=== PATIENT | male | born 1980 | race Caucasian/White ===

== ENCOUNTER 2018-08-13 09:24 | Emergency (ER) | payer SELFPAY ==
[2018-08-13 09:40] VITALS: BP 127/76
--- NOTE | 2018-08-13 10:20 | UC ---
Hip/Pelvis Pain - HPI Summary HPI Summary: Pt with recurrent, intermittent pain left lateral hip and buttock Pt states pain radiate down lateral aspect leg to knee. worse with walking. No leg weakness. no bowel/bladder changes. Tool NSAID with mild improvement. Pain has been 2 days- usually improves in 24 hours. no trauma. Works as [employer] No pcp pt's medications reviewed this visit - History Of Current Complaint Chief Complaint: UCGeneralIllness Stated Complaint: LEFT SIDED HIP PAIN Time Seen by Provider: 08/13/18 10:16 Hx Obtained From: Patient Onset/Duration: Gradual Onset, Lasting Days Pain Intensity: 8 - Allergies/Home Medications Allergies/Adverse Reactions: Allergies Allergy/AdvReac Type Severity Reaction Status Date / Time No Known Allergies Allergy Verified 08/13/18 09:39 Home Medications: Home Medications Ibuprofen TAB* [Motrin TAB* 800 MG] 800 mg PO Q6H 08/13/18 [History Confirmed ] PMH/Surg Hx/FS Hx/Imm Hx Previously Healthy: Yes - Surgical History Surgical History: None - Family History Known Family History: Positive: Non-Contributory - Social History Occupation: Employed Full-time Lives: With Family Alcohol Use: Occasionally Substance Use Type: None Smoking Status (MU): Heavy Every Day Tobacco Smoker Type: Cigarettes Review of Systems All Other Systems Reviewed And Are Negative: Yes Constitutional: Positive: Negative Skin: Positive: Negative Musculoskeletal: Positive: Other: - left hip/buttock Neurological: Positive: Paresthesia Psychological: Positive: Negative Physical Exam - Summary Physical Exam Summary: Vital Signs Reviewed: Yes A+Ox3, discomfort with ambulation Eyes: Conjunctiva Clear, SALVATORE. EOM intact and full ENT: Hearing grossly normal TM x 2 clear, mmoist, uvula midline, no exudate, no erythema Neck: Positive: Supple Respiratory: Positive: No respiratory distress, No accessory muscle use + CTA throughout no w/r Cardiovascular: RRR nl s1, s2 no m/r CBT <2 sec abd soft + BS nt/nd no guarding, no distension Musculoskeletal Exam: No pain c/t/l/s + TTP left latearl hip and left buttock palp of gluteus causes pain radiation to left buttock, lateral hip. + SLE + fle/ ext knee, ankle Neurological: Positive: Alert, + sensation throughout 2+ paterllar without clonus Psychological: Positive: Normal Response To Family Skin: Positive: no rash, no ecchymosis Vital Signs: Initial Vital Signs Temp 98.1 F 08/13/18 09:35 Pulse 70 08/13/18 09:35 Resp 16 08/13/18 09:35 BP 127/76 08/13/18 09:35 Pulse Ox 99 08/13/18 09:35 Diagnostics - Radiology No standard instances Radiology Interpretation Completed By: Radiologist - NAD Hip Injury Course/Dx - Course Course Of Treatment: Pt with pain left buttck, hip, radiates to left knee. no trauma. VSS. CSM intact. imaging unremarkable suspect related to sciatica. recommend stretch. heat. pred. motrin/apap. sports med f/u. PCP referral. declined crutches. work note - Differential Dx/Diagnosis Provider Diagnosis: Left sided sciatica Discharge - Sign-Out/Discharge Documenting (check all that apply): Patient Departure All imaging exams completed and their final reports reviewed: Yes - Discharge Plan Condition: Stable Disposition: HOME Prescriptions: predniSONE TAB* [Deltasone 20 MG TAB*] 20 mg PO DAILY #13 tab Patient Education Materials: Sciatica (ED) Forms: *Work Release Referrals: [facility] [Outside] No Primary Care Phys,NOPCP [Primary Care Provider] - Additional Instructions: - Okay to alternate ibuprofen (Advil, Motrin) 600mg and [id number] every 3 hours as needed for pain. Take with food. Do NOT take for more than 4-5 days. - Apply moist heat to your back for 20 minutes at a time, 4-5 times a day. Once your muscles are warm, slow gentle stretching exercises are important - Take prednisone as prescribed until gone - If you are sleeping on your back, place a pillow under your knees. If you are on your side, place a pillow between your knees - Contact the sports medicine group to schedule a follow-up appointment this week - request the [place] office. -If you pain is uncontrolled, you develop weakness of your legs or any other concerns - - go to an emergency department for further evaluation and treatment - Billing Disposition and Condition Condition: STABLE Disposition: Home
== END 2018-08-13 11:06 | disposition home or self-care (01) ==
LOC: UCCORT 09:24
DX: M54.32 Sciatica, left side (principal); F17.210 Nicotine dependence, cigarettes, uncomplicated
CPT/HCPCS: 99202; G0463